=== PATIENT | female | born 1945 | race Caucasian/White ===

== ENCOUNTER 2018-02-13 07:28 | Day surgery (SDC) | payer OTHER ==
[2018-02-13] MEDS ORDERED: Ringers Lactate 1,000 ML IV ONE (08:10)
[2018-02-13] MEDS ORDERED: PROPOFOL 200 MG/20 ML VIAL IV ONE (09:35)
[2018-02-13] MEDS ORDERED: LIDOCAINE 1% MPF 5 ML VIAL ONE (09:35)
--- NOTE | 2018-02-13 11:40 | ENDO RPT ---
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 ESTIMATED BLOOD LOSS: None CONSENT: The patient understands the risks and benefits of the procedure and understands that these risks include, but are not limited to: sedation, allergic reaction, infection, perforation and/or bleeding. Alternative means of evaluation and treatment include, among others: physical exam, x-rays, and/or surgical intervention. The patient elects to proceed with this endoscopic procedure. DESCRIPTION OF PROCEDURE: During intra-op preparation period all mechanical medical equipment was checked for proper function. Hand hygiene and appropriate measures for infection prevention was taken. Procedure, possible complications, alternatives including, but not limited to possibility of bleeding, perforation, tear, infection, sepsis, need for surgery, need for blood transfusion, were explained to the patient. After the risks, benefits and alternatives of the procedure were thoroughly explained, Informed consent was verified, confirmed and timeout was successfully executed by the treatment team. The patient was placed in the left lateral position. A digital rectal exam was performed and revealed internal hemorrhoids. After appropriate level of anesthesia, the scope was passed. The EC-[id number] ([id number]) endoscope was introduced through the anus and advanced to the cecum, which was identified by both the appendix and ileocecal valve. Passage of the scope was slower through the sigmoid colon due to significant tortuosoty, and diverticulosis. The quality of the prep was good. The instrument was then slowly withdrawn as the colon was fully examined. Scope withdrawal time was 12 minutes. COLON FINDINGS: There was severe diverticulosis noted in the left colon (sigmoid most affected) and few within the right colon. There was associated tortuosity and muscular hypertrophy in the sigmoid region. No bleeding was noted from the diverticulosis. Rectal Prolapse was noted in preop, and patient examined while bearing down and a small rectal prolapse was noted. Tortuous Redundand Sigmoid Colon was noted as above. A small patch of abnormal mucosa was found at the cecum. The mucosa was congested, erythematous and had petechiae and a biopsy was performed using cold forceps. Retroflexed views revealed small hemorrhoids. The scope was then completely withdrawn from the patient and the procedure terminated. ADVERSE EVENTS: There were no complications. IMPRESSIONS: 1. There was severe diverticulosis noted in the left colon and right colon 2. Rectal Prolapse 3. Tortuous Redundand Sigmoid Colon 4. Small abnormal mucosa was found at the cecum; The mucosa was congested, erythematous and had petechiae; biopsy was performed using cold forceps RECOMMENDATIONS: 1. avoid NSAIDS for 2 weeks 2. await biopsy results 3. follow-up: office 2 week(s) 4. Monitor for any evidence of rectal bleeding. 5. increase dietary water 6. low fiber / diverticular diet 7. hemorrhoidal hygiene 8. surgery - Will refer to Colorectal surgery to evaluate rectal prolapse RECALL: Return in 5 year(s) for Colonoscopy, pending biopsy results. Pending Biopsy Results Jared Sanchez DR eSigned: Jared Sanchez DR 02/13/2018 10:29 AM cc: CPT CODES: ICD9 CODES: PATIENT NAME: Aviva Bonilla MR#: [id number]
== END 2018-02-13 11:15 | disposition home or self-care (01) ==
LOC: OR 07:28
PROVIDERS: ATTEND Surgery
PROC: 0DBP8ZX Excision of Rectum, Via Natural or Artificial Opening Endoscopic, Diagnostic (ICD-10-PCS; 2018-02-13)
PROC: 0DBG8ZX Excision of Left Large Intestine, Via Natural or Artificial Opening Endoscopic, Diagnostic (ICD-10-PCS; 2018-02-13)
PROC: 0DBH8ZX Excision of Cecum, Via Natural or Artificial Opening Endoscopic, Diagnostic (ICD-10-PCS; principal; 2018-02-13 10:00)
DX: Z12.11 Encounter for screening for malignant neoplasm of colon (principal); K62.1 Rectal polyp; K52.9 Noninfective gastroenteritis and colitis, unspecified; K57.30 Diverticulosis of large intestine without perforation or abscess without bleeding; K62.3 Rectal prolapse; Q43.8 Other specified congenital malformations of intestine; K64.8 Other hemorrhoids
CPT/HCPCS: 45380; 88305; J2704

== ENCOUNTER 2018-05-21 07:24 | Day surgery (SDC) | payer OTHER ==
[2018-05-20 15:25] LABS: Absolute Lymphocytes (CBC) 2.5 K/uL (0.7-4.9); Absolute Monocytes 0.7 K/uL (0.1-1.3); Absolute Neutrophil 4.2 K/uL (1.8-8.0); Basophils % 0.8 % (0-1.3); Eosinophils % 4.8 % (0-4.4); Hematocrit 39.4 % (36.0-45.0); Lymphocytes % 32.2 % (15.3-44.8); MPV 8.3 fL (7.6-11.3); Monocytes % 8.3 % (3.3-12.3); RBC Red Blood Cell Count 4.09 M/uL (3.86-4.86)
--- NOTE | 2018-05-20 15:25 | RAD REPORT ---
EXAM DESCRIPTION: RAD - Chest Pa And Lat (2 Views) - 05/20/2018 3:15 pm CLINICAL HISTORY: preop Chest pain. COMPARISON: CHEST PA AND LAT 2 VIEW dated 07/30/2012; CHEST PA AND LAT 2 VIEW dated 11/29/2011; CHEST P A AND LAT 2 VIEW dated 06/12/2011 FINDINGS: The lungs are clear. The heart is normal in size. No displaced fractures. IMPRESSION: No acute or concerning finding suspected.
[2018-05-20 15:29] LABS: Protime INR 0.93
[2018-05-20 15:38] LABS: Potassium 4.7 mmol/L (3.5-5.1)
--- NOTE | 2018-05-20 17:27 | EKG ---
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
[2018-05-21] MEDS ORDERED: NA CHLORIDE 0.9% 500 ML ONE (07:43)
[2018-05-21] MEDS ORDERED: HEPARIN 5000 UNIT/ML 1 ML VIAL ONE (08:26)
[2018-05-21] MEDS ORDERED: MIDAZOLAM HCL 2 MG/2 ML INJ ONE (08:27)
[2018-05-21] MEDS ORDERED: FENTANYL CITR 100 MCG/2 ML ONE (08:27)
[2018-05-21] MEDS ORDERED: LIDOCAINE 1% MPF 30 ML VIAL ONE (08:34)
[2018-05-21] MEDS ORDERED: HEPA 1000U/500MLS 2,000 UNIT/1,000 ML BAG IV ONE (09:40)
--- NOTE | 2018-05-21 19:05 | OP ---
Surgeon: Shay Schroeder MD Procedures: Carotid angiogram and coronary angiogram. Findings: The right common carotid artery just before the bulb, and the carotid bulb and the right i nternal carotid artery have a complicated 80% stenosis. The left carotid has less than 20% stenosis, and because she is a candidate for carotid endarterectomy, we took a picture of her coronary arterie s. Her RCA is left dominant with mild coronary plaque. No stenosis. Procedure In Detail: The patient was brought to the cardiac lab assistant in a fasting state, sedated wit h Versed and fentanyl. Prepared and draped in usual sterile fashion. Right femoral approach was use d. The artery was entered using an 18-gauge needle, cannulated with a short J-wire 4-Malay sheath. The sheath was flushed. Heparin 2500 units were given. We used a JR4 to angiogram the carotids and the right coronary artery. A JL4 to angiogram the left coronary artery. At the end of the procedur e, catheters were withdrawn. We took a sheath shot and decided to close the arteriotomy using an Ang io-Seal device. JOE/KOBY Voice ID: [id number] Report ID: [id number]
== END 2018-05-21 15:02 | disposition home or self-care (01) ==
LOC: OR 07:24 → CCL 07:24
PROVIDERS: ATTEND Internal Medicine
DX: I65.23 Occlusion and stenosis of bilateral carotid arteries (principal); I25.10 Atherosclerotic heart disease of native coronary artery without angina pectoris; E78.2 Mixed hyperlipidemia; F17.210 Nicotine dependence, cigarettes, uncomplicated
CPT/HCPCS: 93005; 85025; 80048; 36415; 85610; 85730; 71046; 93454; 36222; C1893; J1644; J2250; J3010

== ENCOUNTER 2019-03-12 15:16 | Emergency (ER) | payer OTHER ==
--- NOTE | 2019-03-12 16:06 | RAD REPORT ---
EXAM DESCRIPTION: CT - Head Brain Wo Cont - 03/12/2019 3:46 pm CLINICAL HISTORY: Alteration of awareness/confusion COMPARISON: None TECHNIQUE: Computed axial tomography of the head was obtained. IV contrast was not requested. All CT scans are performed using dose optimization technique as appropriate and may include automated exposure control or mA/KV adjustment according to patient size. FINDINGS: An intracranial bleed is not seen . The ventricles are normal in caliber. No extra-axial fluid collection is noted. Mild to moderate low-density areas within periventricular, deep and subcortical white matter likely r epresent ischemic changes secondary to small vessel disease. Fluid within the sinuses/ mastoids is not seen. IMPRESSION: No acute intracranial abnormality is seen. If patient's symptoms persist MRI of the bra in would be recommended.
--- NOTE | 2019-03-12 16:34 | RAD REPORT ---
EXAM DESCRIPTION: MRI - Brain Wo Cont - 03/12/2019 4:18 pm CLINICAL HISTORY: Syncope COMPARISON: March 12, [address] TECHNIQUE: Axial, sagittal, and coronal magnetic images of the brain were obtained. Contrast was not requested FINDINGS: Mild signal within periventricular, deep and subcortical white matter likely ischemic norris ges secondary to small vessel disease. Small area of increased signal within the right basal ganglia may indicate an old lacunar infarction. . Diffusion-weighted/ADC mapping does not reveal evidence of acute infarction. The ventricles are normal caliber. An extra-axial fluid collection is not present The sinuses and mastoids are clear. IMPRESSION: No acute intracranial abnormality
--- NOTE | 2019-03-12 17:15 | RAD REPORT ---
EXAM DESCRIPTION: MRI - Lumbar Spine Wo Con - 03/12/2019 5:01 pm CLINICAL HISTORY: Radiculopathy/back pain COMPARISON: 2017 TECHNIQUE: Sagittal T1, T2 and STIR weighted sequences were obtained. Axial T1 and T2 sequences were obtained through the lumbar disc levels. FINDINGS: Mild spondylosis L1-2 Facet hypertrophy with small left lateral disc herniation narrow as the left neural foramina and left lateral recess at L2-3 Disc bulge, ligamentum flavum and facet hypertrophy L3-4. Mild narrowing of the thecal sac which mary ures 10 millimeters. Mild narrowing of the neural foramina bilaterally. Small right lateral disc herniation L4-5. Ligamentum flavum and facet hypertrophy. Narrowing of the r ight neural foramina. Mild narrowing of the thecal sac which measures 8.5 millimeters Mild spondylosis L5-S1 Degenerative signal involves several vertebral endplates. IMPRESSION: Small left lateral disc herniation L2-3 in combination with spondylosis result in left f oraminal stenosis Small right lateral disc herniation L4-5 in combination with spondylosis result in right foraminal st enosis
[2019-03-12 17:44] LABS: Barbiturates NEGATIVE (NEGATIVE); Benzodiazepines POSITIVE (NEGATIVE); Cocaine NEGATIVE (NEGATIVE); METHAMPHETAM NEGATIVE (NEGATIVE); Methadone NEGATIVE (NEGATIVE); Opiates NEGATIVE (NEGATIVE); Phencyclidine NEGATIVE (NEGATIVE); THC Cannibis NEGATIVE (NEGATIVE)
[2019-03-12 17:47] LABS: Urine Blood 1+ (NEG); Urine Glucose NEGATIVE (NEG); Urine Protein NEGATIVE (NEG); Urine Specific Gravity 1.015 (1.005-1.030); Urine pH 7.5 (5.0-7.0)
--- NOTE | 2019-03-12 18:13 | RAD REPORT ---
EXAM DESCRIPTION: Naomi Single View03/12/2019 5:53 pm CLINICAL HISTORY: cough COMPARISON: March 10, 2019 FINDINGS: The lungs appear clear of acute infiltrate. The heart is normal size IMPRESSION: No acute abnormalities displayed
[2019-03-12 19:04] LABS: Protime INR 0.89
[2019-03-12 19:07] LABS: Absolute Lymphocytes (CBC) 2.6 K/uL (0.7-4.9); Basophils % 0.9 % (0-1.3); Hematocrit 38.2 % (36.0-45.0); Lymphocytes % 30.6 % (15.3-44.8); MPV 8.5 fL (7.6-11.3)
[2019-03-12] MEDS ORDERED: CEFTRIAXONE/SWI 1gm 1 GM/10 ML SYR ONE (19:33)
[2019-03-12] MEDS ORDERED: NA CHLORIDE 0.9% 1,000 ML ONE (19:33)
[2019-03-12 19:44] LABS: ALT/SGPT 23 U/L (12-78); AST/SGOT 19 U/L (15-37); Alkaline Phosphatase 55 U/L (45-117); BUN Blood Urea Nitrogen 14 mg/dL (7-18); Bicarbonate 30 mmol/L (21-32); Bilirubin Direct 0.2 mg/dL (0-0.2); Bilirubin Total 0.7 mg/dL (0.2-1.0); Glucose Level 98 mg/dL (74-106); Magnesium 2.5 mg/dL (1.8-2.4); NT PRO-BNP 100 pg/mL (<450); Potassium 4.3 mmol/L (3.5-5.1); Sodium Level 142 mmol/L (136-145); Troponin (Emerg Dept Use Only) < 0.02 ng/mL (0.0-0.045)
--- NOTE | 2019-03-12 20:15 | EDPHYS ---
Physician Documentation [facility] Name: Aviva Bonilla Age: 73 yrs Sex: Female : 1945 Arrival Date: 03/12/2019 Time: 15:18 Bed 5 Private MD: ED Physician Cal Magdaleno HPI: 03/12 17:19 This 73 yrs old Female presents to ER via Stretcher with complaints of vida Accidental Overdose. 17:19 Context: Method: the patient has a confirmed or suspected ingestion, valium 40 mg po vida x1, prior to mri. Associated signs and symptoms: The patient has no apparent associated signs or symptoms. Severity of symptoms: At their worst the symptoms were moderate in the emergency department the symptoms are unchanged. The patient has not experienced similar symptoms in the past. Historical: - Allergies: 15:19 No Known Allergies; ss - Immunization history:: Adult Immunizations unknown. - Social history:: Smoking status: Patient/guardian denies using tobacco. - Ebola Screening: : Patient denies exposure to infectious person Patient denies travel to an Ebola-affected area in the 21 days before illness onset. - Family history:: not pertinent. ROS: 17:19 Constitutional: Negative for fever, chills, and weight loss, Eyes: Negative for injury, vida pain, redness, and discharge, ENT: Negative for injury, pain, and discharge, Neck: Negative for injury, pain, and swelling, Cardiovascular: Negative for chest pain, palpitations, and edema, Respiratory: Negative for shortness of breath, cough, wheezing, and pleuritic chest pain, Abdomen/GI: Negative for abdominal pain, nausea, vomiting, diarrhea, and constipation, Back: Negative for injury and pain, : Negative for injury, bleeding, discharge, and swelling, MS/Extremity: Negative for injury and deformity, Skin: Negative for injury, rash, and discoloration, Psych: Negative for depression, anxiety, suicide ideation, homicidal ideation, and hallucinations, Allergy/Immunology: Negative for hives, rash, and allergies, Endocrine: Negative for neck swelling, polydipsia, polyuria, polyphagia, and marked weight changes, Hematologic/Lymphatic: Negative for swollen nodes, abnormal bleeding, and unusual bruising. 17:19 Neuro: Positive for altered mental status, dizziness, speech changes, weakness. Exam: 17:19 Constitutional: This is a well developed, well nourished patient who is awake, alert, vida and in no acute distress. Head/Face: Normocephalic, atraumatic. Eyes: Pupils equal round and reactive to light, extra-ocular motions intact. Lids and lashes normal. Conjunctiva and sclera are non-icteric and not injected. Cornea within normal limits. Periorbital areas with no swelling, redness, or edema. ENT: Nares patent. No nasal discharge, no septal abnormalities noted. Tympanic membranes are normal and external auditory canals are clear. Oropharynx with no redness, swelling, or masses, exudates, or evidence of obstruction, uvula midline. Mucous membranes moist. Neck: Trachea midline, no thyromegaly or masses palpated, and no cervical lymphadenopathy. Supple, full range of motion without nuchal rigidity, or vertebral point tenderness. No Meningismus. Chest/axilla: Normal chest wall appearance and motion. Nontender with no deformity. No lesions are appreciated. Cardiovascular: Regular rate and rhythm with a normal S1 and S2. No gallops, murmurs, or rubs. Normal PMI, no JVD. No pulse deficits. Respiratory: Lungs have equal breath sounds bilaterally, clear to auscultation and percussion. No rales, rhonchi or wheezes noted. No increased work of breathing, no retractions or nasal flaring. Abdomen/GI: Soft, non-tender, with normal bowel sounds. No distension or tympany. No guarding or rebound. No evidence of tenderness throughout. Back: No spinal tenderness. No costovertebral tenderness. Full range of motion. Skin: Warm, dry with normal turgor. Normal color with no rashes, no lesions, and no evidence of cellulitis. MS/ Extremity: Pulses equal, no cyanosis. Neurovascular intact. Full, normal range of motion. Neuro: Awake and alert, GCS 15, oriented to person, place, time, and situation. Cranial nerves II-XII grossly intact. Motor strength 5/5 in all extremities. Sensory grossly intact. Cerebellar exam normal. Normal gait. Psych: Awake, alert, with orientation to person, place and time. Behavior, mood, and affect are within normal limits. Vital Signs: 15:18 BP 91 / 53; Pulse 74; Resp 14; Temp 97.9(TE); Pulse Ox 100% on R/A; Pain 0/10; ss 16:15 ph 17:20 BP 107 / 62; Pulse 76; Resp 16; Pulse Ox 99% on R/A; Pain 0/10; ph 19:30 BP 125 / 72; Pulse 62; Resp 12; Temp 97.6; Pulse Ox 100% on R/A; Pain 0/10; vc 20:30 BP 108 / 74; Pulse 66; Resp 15; Pulse Ox 100% on R/A; Pain 0/10; vc 16:15 Pt in radiology ph MDM: 15:30 Patient medically screened. [facility] 18:53 Data reviewed: vital signs, nurses notes, lab test result(s), EKG, radiologic studies, [facility] CT scan, MRI, plain films. 03/12 15:31 Order name: Basic Metabolic Panel; Complete Time: 20:07 [facility] 03/12 20:07 Interpretation: Normal except: CL 108; GFR 65. 03/12 15:31 Order name: CBC with Diff; Complete Time: 19:25 [facility] 03/12 15:31 Order name: LFT's; Complete Time: 20:07 [facility] 03/12 15:31 Order name: Magnesium; Complete Time: 20:07 [facility] 03/12 20:08 Interpretation: MG 2.5; Reviewed. 03/12 15:31 Order name: NT PRO-BNP; Complete Time: 20:07 [facility] 03/12 15:31 Order name: PT-INR; Complete Time: 19:15 [facility] 03/12 15:31 Order name: Troponin (emerg Dept Use Only); Complete Time: 20:07 [facility] 03/12 20:08 Interpretation: Reviewed. 03/12 15:31 Order name: Acetaminophen; Complete Time: 20:07 [facility] 03/12 15:31 Order name: ETOH Level; Complete Time: 19:25 [facility] 03/12 15:31 Order name: Ptt, Activated; Complete Time: 19:15 [facility] 03/12 15:31 Order name: Salicylate; Complete Time: 20:07 [facility] 03/12 15:31 Order name: Urine Drug Screen; Complete Time: 18:05 [facility] 03/12 20:08 Interpretation: Normal except: BZO POSITIVE. 03/12 17:28 Order name: Urine Dipstick--Ancillary (enter results); Complete Time: 18:05 03/12 20:08 Interpretation: Normal except: UBLD 1+; UPH 7.5; UESTR 3+. cp 03/12 15:31 Order name: XRAY Chest (1 view); Complete Time: 19:15 vida 03/12 15:31 Order name: EKG; Complete Time: 15:34 vida 03/12 15:31 Order name: Cardiac monitoring; Complete Time: 17:48 vida 03/12 15:31 Order name: EKG - Nurse/Tech; Complete Time: 19:45 vida 03/12 15:31 Order name: IV Saline Lock; Complete Time: 19:45 vida 03/12 15:31 Order name: Labs collected and sent; Complete Time: 19:33 vida 03/12 15:31 Order name: O2 Per Protocol; Complete Time: 17:48 vida 03/12 15:31 Order name: CT Head Brain wo Cont; Complete Time: 16:25 vida 03/12 15:44 Order name: Brain Wo Cont MRI; Complete Time: 16:44 bd 03/12 20:09 Interpretation: Report reviewed. 03/12 16:10 Order name: Lumbar Spine Wo Con; Complete Time: 18:05 EDMS 03/12 18:00 Order name: Diet Regular; Complete Time: 18:00 ph 03/12 15:31 Order name: O2 Sat Monitoring; Complete Time: 17:48 vida 03/12 15:31 Order name: Urine Dipstick-Ancillary (obtain specimen); Complete Time: 17:54 vida Administered Medications: 18:27 CANCELLED (Duplicate Order): Xopenex 1.25 mg Inhalation once vida 18:27 CANCELLED (Duplicate Order): AtroVENT Aerosol 0.5 mg Inhalation once vida 18:27 CANCELLED (Duplicate Order): D50W 25 ml IVP once; (0.5 amp) vida 19:44 Drug: NS 0.9% 1000 ml Route: IV; Rate: 1 bolus; Site: left antecubital; vc 19:44 Drug: Rocephin - (cefTRIAXone) 1 grams Route: IVPB; Infused Over: 30 mins; Site: left vc antecubital; Disposition: 03/12/19 20:13 Discharged to Home. Impression: Altered mental status, unspecified - over medicated, Urinary tract infection, site not specified. - Condition is Stable. - Discharge Instructions: Dysuria, Benzodiazepine Overdose, Urinary Tract Infection, Adult, Urinary Tract Infection, Adult, [id number]. - Prescriptions for Cipro 250 mg Oral Tablet - take 1 tablet by ORAL route every 12 hours; 14 tablet. - Medication Reconciliation Form, Thank You Letter, Antibiotic Education, Prescription Opioid Use form. - Follow up: Private Physician; When: 2 - 3 days; Reason: Recheck today's complaints, Continuance of care, Re-evaluation by your physician. - Problem is new. - Symptoms have improved. Signatures: Dispatcher [employer] EDNV Cal Magdaleno MD MD cha Smirch, Shelby RN RN ss Cal Phelps PA PA cp Neris Bush, RN RN vc Corrections: (The following items were deleted from the chart) 18:27 18:27 Xopenex 1.25 mg Inhalation once ordered. [facility] 18:27 18:27 AtroVENT Aerosol 0.5 mg Inhalation once ordered. [facility] 18:27 18:27 D50W 25 ml IVP once; (0.5 amp) ordered. [facility] 20:52 20:13 03/12/2019 20:13 Discharged to Home. Impression: Altered mental status, vc unspecified - over medicated; Urinary tract infection, site not specified. Condition is Stable. Discharge Instructions: Dysuria, Urinary Tract Infection, Adult, Urinary Tract Infection, Adult, [id number], Benzodiazepine Overdose. Prescriptions for Cipro 250 mg Oral Tablet - take 1 tablet by ORAL route every 12 hours; 14 tablet. and Forms are Medication Reconciliation Form, Thank You Letter, Antibiotic Education, Prescription Opioid Use. Follow up: Private Physician; When: 2 - 3 days; Reason: Recheck today's complaints, Continuance of care, Re-evaluation by your physician. Problem is new. Symptoms have improved. cp
--- NOTE | 2019-03-12 20:15 | ER ---
Nurse's Notes [facility] Name: Aviva Bonilla Age: 73 yrs Sex: Female : 1945 Arrival Date: 03/12/2019 Time: 15:18 Bed 5 Private MD: Diagnosis: Altered mental status, unspecified-over medicated;Urinary tract infection, site not specified Presentation: 03/12 15:19 Presenting complaint: Pt was given unknown medication prescribed by Dr. Cifuentes prior to ss having an MRI of her hip today. Pt is unsure which medication it was, but is heavily sedated. Family member unable to get patient out of car due to sedation. Pt arouses to loud verbal stimuli. Pt is able to maintain her own airway. Transition of care: patient was not received from another setting of care. Onset of symptoms was March 12, 2019. Risk Assessment: Do you want to hurt yourself or someone else? Patient reports no desire to harm self or others. Initial Sepsis Screen: Does the patient meet any 2 criteria? No. Patient's initial sepsis screen is negative. Does the patient have a suspected source of infection? No. Patient's initial sepsis screen is negative. Care prior to arrival: SEE TRIAGE NOTE. 15:19 Acuity: NOHEMI 3 ss 15:19 Method Of Arrival: Stretcher ss Historical: - Allergies: 15:19 No Known Allergies; ss - Immunization history:: Adult Immunizations unknown. - Social history:: Smoking status: Patient/guardian denies using tobacco. - Ebola Screening: : Patient denies exposure to infectious person Patient denies travel to an Ebola-affected area in the 21 days before illness onset. - Family history:: not pertinent. Screenin:47 Abuse screen: Denies threats or abuse. Denies injuries from another. Nutritional ph screening: No deficits noted. Tuberculosis screening: No symptoms or risk factors identified. Fall Risk No fall in past 12 months (0 pts). No secondary diagnosis (0 pts). IV access (20 points). Ambulatory Aid- None/Bed Rest/Nurse Assist (0 pts). Gait- Weak (10 pts.). Mental Status- Overestimates/Forgets Limitations (15 pts.). Total Veras Fall Scale indicates High Risk Score (45 or more points). Fall prevention measures have been instituted. Side Rails Up X 2 Placed Close to Nursing Station Frequent Obs/Assessments Occuring Family Present and informed to notify staff if the need to leave the bedside As available patient and family educated on Fall Prevention Program and Strategies. Assessment: 15:30 General: Appears in no apparent distress. comfortable, slender, well groomed, Behavior ph is drowsy, listless, quiet. Pain: Denies pain. Neuro: Level of Consciousness is confused, lethargic, listless, Oriented to person. Cardiovascular: Capillary refill < 3 seconds in bilateral fingers Patient's skin is warm and dry. Respiratory: Airway is patent Respiratory effort is even, unlabored, Respiratory pattern is regular, symmetrical. Derm: Skin is intact, Skin is pale. Musculoskeletal: Circulation, motion, and sensation intact. 16:14 Reassessment: Pt in radiology. 16:50 Reassessment: Pt remains in radiology. 17:15 Reassessment: Patient appears in no apparent distress at this time. Pt returned from radiology, more awake and alert, ambulated to restroom w/ assistance, pt states, " I feel fine, just a little drowsy." Pt reports that he located medication bottle in pt's purse, prescription for 10 mg diazepam x 4, pt states, " I was really scared so I took all four.". 18:39 Reassessment: Patient appears in no apparent distress at this time. Patient and/or family updated on plan of care and expected duration. Pain level reassessed. Patient is alert, oriented x 3, equal unlabored respirations, skin warm/dry/pink. Multiple attempts to obtain blood work unsuccessful, phlebotomy at bedside. 19:15 Reassessment: Patient and/or family updated on plan of care and expected duration. Pain vc level reassessed. Patient laying with eyes closed. Patient denies pain at this time. Vital Signs: 15:18 BP 91 / 53; Pulse 74; Resp 14; Temp 97.9(TE); Pulse Ox 100% on R/A; Pain 0/10; ss 16:15 ph 17:20 BP 107 / 62; Pulse 76; Resp 16; Pulse Ox 99% on R/A; Pain 0/10; ph 19:30 BP 125 / 72; Pulse 62; Resp 12; Temp 97.6; Pulse Ox 100% on R/A; Pain 0/10; vc 20:30 BP 108 / 74; Pulse 66; Resp 15; Pulse Ox 100% on R/A; Pain 0/10; vc 16:15 Pt in radiology ph ED Course: 15:18 Patient arrived in ED. ss 15:18 Arm band placed on right wrist. ss 15:24 Triage completed. ss 15:30 Cal Magdaleno MD is Attending Physician. vida 15:44 Olesya Aguilera, RN is Primary Nurse. ph 15:47 CT Head Brain wo Cont In Process Unspecified. EDMS 16:04 Brain Wo Cont MRI In Process Unspecified. EDMS 16:08 Radiology exam delayed due to IN MRI. bh 16:15 No provider procedures requiring assistance completed. ph 16:36 Lumbar Spine Wo Con In Process Unspecified. EDMS 17:35 Missed attempt(s): 22 gauge in right antecubital area. Bleeding controlled, band aid ph applied, catheter tip intact. Missed attempt(s): 22 gauge in right forearm. Bleeding controlled, band aid applied, catheter tip intact. 17:47 Patient has correct armband on for positive identification. Bed in low position. Call ph light in reach. Side rails up X2. Pulse ox on. NIBP on. Door closed. Noise minimized. Warm blanket given. 17:53 XRAY Chest (1 view) In Process Unspecified. EDMS 19:46 EKG done, by ED staff, reviewed by Bhupendra King MD. ds4 20:45 IV discontinued, intact, bleeding controlled, No redness/swelling at site. Pressure vc dressing applied. Administered Medications: 18:27 CANCELLED (Duplicate Order): Xopenex 1.25 mg Inhalation once vida 18:27 CANCELLED (Duplicate Order): AtroVENT Aerosol 0.5 mg Inhalation once vida 18:27 CANCELLED (Duplicate Order): D50W 25 ml IVP once; (0.5 amp) vida 19:44 Drug: NS 0.9% 1000 ml Route: IV; Rate: 1 bolus; Site: left antecubital; vc 19:44 Drug: Rocephin - (cefTRIAXone) 1 grams Route: IVPB; Infused Over: 30 mins; Site: left vc antecubital; Outcome: 20:13 Discharge ordered by . cp 20:51 Discharged to home via wheelchair, with family, with friend. vc 20:51 Condition: good 20:51 Discharge instructions given to patient, family, friend, Instructed on discharge instructions, follow up and referral plans. medication usage, Prescriptions given X 1. 20:52 Patient left the ED. vc Signatures: Dispatcher [employer] EDCal Miles MD MD cha Smirch, Shelby, RN RN Carroll Pate ds4 Olesya Aguilera RN RN ph Page, Corey, PA PA cp Calcote, Vanessa, RN RN vc Hallum, Brittan bh
[2019-03-12 23:39] VITALS: BP 125/72; TEMP 97.6; O2SAT 100
--- NOTE | 2019-03-13 10:59 | EKG ---
Test Date: 2019-03-12 Test Time: 19:37:43 Process Developer: CONY MEASUREMENT RESULTS: Intervals: Rate: 62 MA: 140 QRSD: 80 QT: 416 QTc: 422 [place]: P: 49 MA: 140 QRS: 16 T: 46 INTERPRETIVE STATEMENTS: Normal sinus rhythm Normal ECG Compared to ECG 05/20/2018 15:00:36 Sinus bradycardia no longer present Electronically Signed On 03-13-19 10:58:18 [employer] by Rocael Branch
== END 2019-03-12 20:52 | disposition home or self-care (01) ==
LOC: ER 15:16
DX: T42.4X1A Poisoning by benzodiazepines, accidental (unintentional), initial encounter (principal); N39.0 Urinary tract infection, site not specified
CPT/HCPCS: 93005; 85025; 80048; 36415; 80320; 83735; 80329 ×2; 85610; 80076; 80307 ×8; 85730; 81003; 84484; 83880; 70450; 71045; 70551; 72148; 96374; 99284; J0696; J7030

== ENCOUNTER 2021-06-19 22:19 | Emergency (ER) | payer OTHER ==
--- OUTSIDE RECORDS SUMMARY | 2021-06-19 22:22 | XMS REPORT | Continuity of Care Document ---
:1945 Author Organization [facility] t Address [address] [place] [address] Care Team Providers Name Role Phone SHIRA Anabella Primary Care Physician Unavailable Tiesha MIXON Attending Clinician Unavailable Only, Test Attending Clinician Unavailable Tiesha Mixon MD Attending Clinician Pob, Lab Main Attending Clinician Unavailable Doctor Unassigned, Name Attending Clinician Unavailable NAREN Attending Clinician Unavailable Rahat SPAULDING Attending Clinician RAHAT Attending Clinician Unavailable Tiesha MIXON Admitting Clinician Unavailable Payers Payer Name Policy Type Policy Number Effective Date Expiration Date [employer] [id number] 2020 00:00:00 SPRING Problems Condition Condition Condition Status Onset Resolution Last Treating Co mments Source Name Details Category Date Date Treatment Clinician Date No known No known Disease Unive rs active active ity of problems problems [facility] Allergies, Adverse Reactions, Alerts Allergy Allergy Status Severity Reaction(s) Onset Inactive Treating Comm ents Source Name Type Date Date Clinician NO KNOWN Drug Active Univers ALLERGIE Class ity of S [facility] Social History Social Habit Start Date Stop Date Quantity Comments Source Exposure to Not sure [facility] SARS-CoV-2 (event) Medica l Branch Tobacco use and 2020-12-23 2020-12-23 Never used [facility] exposure 00:00:00 00:00:00 [facility] Sex [birth year] [facility] 00:00:00 00:00:00 [facility] Smoking Status Start Date Stop Date Source Unknown if ever smoked [facility] Never smoker [facility] Medications Ordered Filled Start Stop Current Ordering Indication Dosage Frequency Signature Comments Components Source Medication Medication Date Date Medication? Clinician (SIG) Name Name multivitami 2020-02 Yes 1{tbl} Take 1 Un jamshid n tablet 0-28 tablet by ity of 10:46: mouth [place] 35 every Medical morning. Branch vitamin B 2020-02 Yes 1{tbl} Take 1 Univ ers complex (B 0-28 tablet by ity of COMPLEX 1 10:46: mouth. [place] ORAL) [address] [place] [address] vitamin C 2020-02 Yes 1000mg Take 1,000 Univers with ronald 0-28 mg by ity of hips 1,000 10:46: mouth. [place] mg tablet 34 [facility] Branch aspirin 81 2020-02 Yes 81mg Take 81 mg U nivers mg EC 0-28 by mouth. ity of tablet 10:46: [address] CHOLECALCIF 2020- No 25mg Take 25 mg Univers ZAN, 11-15 09-20 by mouth. ity of VITAMIN D3, 14:56: 00:00 [place] ORAL 35 :00 [facility] CHOLECALCIF 2020- No 25mg Take 25 mg Univers ZAN, 11-15 09-20 by mouth. ity of VITAMIN D3, 14:56: 00:00 [place] ORAL 35 :00 [facility] CHOLECALCIF 2020- No 25mg Take 25 mg Univers ZAN, 11-15 0920 by mouth. ity of VITAMIN D3, 14:56: 00:00 [place] ORAL 35 :00 [facility] vitamin C Yes 1000mg Take 1,000 Univers with ronald 9-20 mg by ity of hips 1,000 14:55: mouth. [place] mg tablet 34 [facility] Branch aspirin 81 Yes 81mg Take 81 mg U nivers mg EC 9-20 by mouth. ity of tablet 14:55: [address] multivitami Yes 1{tbl} Take 1 Un jamshid n tablet 9-20 tablet by ity of 14:55: mouth [place] [id number] every Medical morning. Branch vitamin C Yes 1000mg Take 1,000 Univers with ronald 9-20 mg by ity of hips 1,000 14:55: mouth. [place] mg tablet 34 Medical Branch aspirin 81 Yes 81mg Take 81 mg U nivers mg EC 9-20 by mouth. ity of tablet 14:55: [address] Branch multivitami Yes 1{tbl} Take 1 Un jamshid n tablet 9-20 tablet by ity of 14:55: mouth [place] 34 every Medical morning. Branch vitamin C Yes 1000mg Take 1,000 Univers with ronald 9-20 mg by ity of hips 1,000 14:55: mouth. [place] mg tablet 34 Medical Branch aspirin 81 Yes 81mg Take 81 mg U nivers mg EC 9-20 by mouth. ity of tablet 14:55: [address] Branch multivitami Yes 1{tbl} Take 1 Un jamshid n tablet 9-20 tablet by ity of 14:55: mouth [place] 34 every Medical morning. Branch vitamin C Yes 1000mg Take 1,000 Univers with ronald 9-20 mg by ity of hips 1,000 14:55: mouth. [place] mg tablet 34 Medical Branch aspirin 81 Yes 81mg Take 81 mg U nivers mg EC 9-20 by mouth. ity of tablet 14:55: [address] multivitami Yes 1{tbl} Take 1 Un jamshid n tablet 9-20 tablet by ity of 14:55: mouth [place] 34 every Medical morning. Branch vitamin C Yes 1000mg Take 1,000 Univers with ronald 9-20 mg by ity of hips 1,000 14:55: mouth. [place] mg tablet 34 Medical Branch aspirin 81 Yes 81mg Take 81 mg U nivers mg EC 9-20 by mouth. ity of tablet 14:55: [address] multivitami Yes 1{tbl} Take 1 Un jamshid n tablet 9-20 tablet by ity of 14:55: mouth [place] 34 every Medical morning. Branch vitamin B Yes 1{tbl} Take 1 Univ ers complex (B 9-20 tablet by ity of COMPLEX 1 14:55: mouth. [place] ORAL) [address] [place] [address] vitamin B Yes 1{tbl} Take 1 Univ ers complex (B 9-20 tablet by ity of COMPLEX 1 14:55: mouth. [place] ORAL) [address] [place] [address] vitamin B Yes 1{tbl} Take 1 Univ ers complex (B 9-20 tablet by ity of COMPLEX 1 14:55: mouth. [place] ORAL) 33 Medical Branch vitamin B 2020-0 Yes 1{tbl} Take 1 Univ ers complex (B 9-20 tablet by ity of COMPLEX 1 14:55: mouth. [place] ORAL) 33 Medical Branch vitamin B 1-0 Yes 1{tbl} Take 1 Univ ers complex (B 9-20 tablet by ity of COMPLEX 1 14:55: mouth. [place] ORAL) Medical Branch SERTraline 2020-0 Yes 25mg Take 25 mg U nivers 25 mg 8-28 by mouth ity of tablet 00:00: daily. [place] Medical Branch SERTraline 1-0 Yes 25mg Take 25 mg U nivers 25 mg 8-28 by mouth ity of tablet 00:00: daily. [place] Medical Branch SERTraline 1-0 Yes 25mg Take 25 mg U nivers 25 mg 8-28 by mouth ity of tablet 00:00: daily. [place] Medical Branch SERTraline 2020-0 Yes 25mg Take 25 mg U nivers 25 mg 8-28 by mouth ity of tablet 00:00: daily. [place] Medical Branch SERTraline 2020-0 Yes 25mg Take 25 mg U nivers 25 mg 8-28 by mouth ity of tablet 00:00: daily. [place] Medical Branch SERTraline 1-0 Yes 25mg Take 25 mg U nivers 25 mg 8-28 by mouth ity of tablet 00:00: daily. [place] Medical Branch memantine 1-0 Yes 10mg Take 10 mg Un jamshid 10 mg 8-24 by mouth 2 ity of tablet 00:00: (two) 00 times Medical daily. Branch memantine 1-0 Yes 10mg Take 10 mg Un jamshid 10 mg 8-24 by mouth 2 ity of tablet 00:00: (two) [place] 00 times Medical daily. Branch memantine 2021-0 Yes 10mg Take 10 mg Un jamshid 10 mg 8-24 by mouth 2 ity of tablet 00:00: (two) [place] 00 times Medical daily. Branch memantine 2021-0 Yes 10mg Take 10 mg Un jamshid 10 mg 8-24 by mouth 2 ity of tablet 00:00: (two) [place] times Medical daily. Branch memantine 1-0 Yes 10mg Take 10 mg Un jamshid 10 mg 8-24 by mouth 2 ity of tablet 00:00: (two) [place] times Medical daily. Branch memantine 2020-0 Yes 10mg Take 10 mg Un jamshid 10 mg 8-24 by mouth 2 ity of tablet 00:00: (two) [place] times Medical daily. Branch rosuvastati 2020-0 Yes 5mg Take 5 mg U nivers n 5 mg 8-23 by mouth ity of tablet 00:00: daily. Medical Branch rosuvastati 2020-0 Yes 5mg Take 5 mg U nivers n 5 mg 8-23 by mouth ity of tablet 00:00: daily. Medical Branch rosuvastati 2020-0 Yes 5mg Take 5 mg U nivers n 5 mg 8-23 by mouth ity of tablet 00:00: daily. Medical Branch rosuvastati 2020-0 Yes 5mg Take 5 mg U nivers n 5 mg 8-23 by mouth ity of tablet 00:00: daily. Medical Branch rosuvastati 2020-0 Yes 5mg Take 5 mg U nivers n 5 mg 8-23 by mouth ity of tablet 00:00: daily. Medical Branch rosuvastati 2020-0 Yes 5mg Take 5 mg U nivers n 5 mg 8-23 by mouth ity of tablet 00:00: daily. Medical Branch donepeziL 5 2020-0 Yes 5mg Take 5 mg U nivers mg tablet 7-19 by mouth. ity o f 00:00: Medical Branch donepeziL 5 2020-0 Yes 5mg Take 5 mg U nivers mg tablet 7-19 by mouth. ity o f 00:00: Medical Branch donepeziL 5 2020-0 Yes 5mg Take 5 mg U nivers mg tablet 7-19 by mouth. ity o f 00:00: Medical Branch donepeziL 5 2020-0 Yes 5mg Take 5 mg U nivers mg tablet 7-19 by mouth. ity o f 00:00: Medical Branch donepeziL 5 2020-0 Yes 5mg Take 5 mg U nivers mg tablet 7-19 by mouth. ity o f 00:00: Medical Branch donepeziL 5 2021-0 Yes 5mg Take 5 mg U nivers mg tablet 7-19 by mouth. ity o f 00:00: [address] Vital Signs Vital Name Observation Time Observation Value Comments Source Heart rate 2020-11-15 19:52:00 71 /min [facility] Body temperature 2020-11-15 19:52:00 36.11 Traci [facility] Respiratory rate 2020-11-15 19:52:00 18 /min [facility] Body height 2020-11-15 19:52:00 157.5 cm [facility] Body weight 2020-11-15 19:52:00 51.982 kg [facility] BMI 2020-11-15 19:52:00 20.96 kg/m2 [facility] Oxygen saturation in 2020-11-15 19:52:00 96 /min [facility] Arterial blood by [facility] Pulse oximetry Branch Systolic blood 2020-11-15 19:52:00 115 mm[Hg] Univer sity of pressure [facility] Diastolic blood 2020-11-15 19:52:00 77 mm[Hg] [facility] Procedure Date / Time Performed Performing Clinician [facility] ASSIGNMENT OF BENEFITS 2020-12-20 21:53:02 Doctor Unassigned, No [facility] Encounters Start End Encounter Admission Attending Care Care Encounter Source Date/Time Date/Time Type Type Clinicians Facility Department ID 2020-12-31 Outpatient R ORAL [facility] OPH [id number] Univers 12:50:13 JORDI [facility] 2020-12-27 Outpatient R ORAL [facility] OPH [id number] Univers 15:05:04 JORDI [facility] 2020-12-27 2020-12-27 Laboratory Only, Adc Test [facility] [id number]. 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 Vinaayk, Amol Lab Main [facility] 1.2.8 [id number] [id number] Univers 17:02:34 17:17:34 Visit Jordi Mixon [id number] 0 [id number] [id number] Hi dical nal [address] [facility] 2020-12-20 2020-12-20 Outpatient R [facility] [id number] Univers 17:00:00 17:00:00 [id number] [facility] 2020-12-20 2020-12-20 Outpatient R ORAL [facility] [id number] Univers 17:00:00 17:00:00 JORDI [facility] 2020-12-20 2020-12-20 Orders Doctor ALICIA [id number] Univers 00:00:00 00:00:00 Only Unassigned, JENNY [id number] ity of [place] [facility] [id number] Tra as [id number] [address] 2020-11-29 2020-11-29 Outpatient R NAREN [facility] [id number] Univers 13:00:00 13:00:00 JUAN [id number] [facility] 2020-11-15 2020-11-15 [facility] [id number] Univers 14:29:56 15:06:30 Visit Ankita Lopez [id number] i [id number] [id number] Hi dical nal [address] [facility] 2020-11-15 2020-11-15 [facility] [id number] Univers 15:00:00 15:00:00 ANKITA [facility] Results This patient has no known results.
[2021-06-19] MEDS ORDERED: MORPHINE 4 MG/ML SYR ONE ×2 (22:31→23:00)
[2021-06-19] MEDS ORDERED: ONDANSETRON 4 MG/2 ML VIAL ONE (22:31)
--- NOTE | 2021-06-19 23:11 | ER ---
Nurse's Notes [facility] Name: Aviva Bonilla Age: 75 yrs Sex: Female : 1945 Arrival Date: 06/19/2021 Time: 22:21 Bed 11 Private MD: Diagnosis: Fracture of unspecified part of neck of left femur, initial encounter for closed fracture;Fall on same level from slipping, tripping and stumbling without subsequent striking against object Presentation: 06/19 22:21 Chief complaint: EMS states: toned out for fall. Pt denies LOC or hitting head. Pt ld1 reporting left leg pain. Coronavirus screen: At this time, the client does not indicate any symptoms associated with coronavirus-19. Ebola Screen: No symptoms or risks identified at this time. Initial Sepsis Screen: Does the patient meet any 2 criteria? No. Patient's initial sepsis screen is negative. Does the patient have a suspected source of infection? No. Patient's initial sepsis screen is negative. Risk Assessment: Do you want to hurt yourself or someone else? Patient reports no desire to harm self or others. Onset of symptoms was June 19, 2021. 22:21 Method Of Arrival: EMS: [facility] ld1 22:21 Acuity: NOHEMI 3 ld1 Triage Assessment: 22:24 General: Appears in no apparent distress. uncomfortable, Behavior is anxious, fussy. ld1 Pain: Complains of pain in left leg. EENT: No signs and/or symptoms were reported regarding the EENT system. Neuro: Level of Consciousness is awake, alert, obeys commands, Oriented to person, place, time, situation. Cardiovascular: Capillary refill < 3 seconds Patient's skin is warm and dry. Respiratory: Airway is patent Respiratory effort is even, unlabored. GI: Abdomen is flat, non-distended. : No signs and/or symptoms were reported regarding the genitourinary system. Derm: No signs and/or symptoms reported regarding the dermatologic system. Musculoskeletal: Reports pain in left leg. Historical: - Allergies: 22:24 No Known Allergies; ld1 - Home Meds: 22:24 Zoloft 20 mg/mL Oral conc [Active]; aspirin 81 mg Oral chew 1 tab once daily [Active]; ld1 - PMHx: 22:24 Depressive disorder; ld1 - PSHx: 22:24 Hysterectomy; ld1 - Immunization history:: Adult Immunizations up to date, Client reports receiving the 2nd dose of the Covid vaccine. - Social history:: Smoking status: Patient denies any tobacco usage or history of. Patient/guardian denies using alcohol. Screenin:25 Abuse screen: Denies threats or abuse. Denies injuries from another. Nutritional ld1 screening: No deficits noted. Tuberculosis screening: No symptoms or risk factors identified. Fall Risk None identified. Assessment: 22:25 Reassessment: see triage assessment. ld1 23:48 Reassessment: Patient appears in no apparent distress at this time. Patient is alert, ld1 oriented x 3, equal unlabored respirations, skin warm/dry/pink. Patient states symptoms have improved. 06/20 00:15 Reassessment: Patient is alert, oriented x 3, equal unlabored respirations, skin vc1 warm/dry/pink. Patient states symptoms have improved. 01:00 Reassessment: Patient and/or family updated on plan of care and expected duration. Pain vc1 level reassessed. Patient is alert, oriented x 3, equal unlabored respirations, skin warm/dry/pink. Patient denies pain at this time. 01:49 Reassessment: Report given to receiving nurse VALERIE Martines. vc1 Vital Signs: 06/19 22:21 BP 150 / 102; Pulse 80; Resp 18; Temp 98.1(TE); Pulse Ox 98% on R/A; Weight 48.08 kg; ld1 Height 5 ft. 3 in. (160.02 cm); Pain 9/10; 23:48 BP 141 / 80; Pulse 70; Resp 17; Pulse Ox 95% on R/A; ld1 06/20 00:15 BP 131 / 63; Pulse 65; Resp 15; Pulse Ox 100% on R/A; vc1 01:00 BP 127 / 69; Pulse 62; Resp 15; Pulse Ox 99% on R/A; vc1 01:30 BP 133 / 66; Pulse 63; Resp 14; Pulse Ox 99% ; vc1 06/19 22:21 Body Mass Index 18.78 (48.08 kg, 160.02 cm) ld1 ED Course: 06/19 22:21 Patient arrived in ED. ld1 22:22 Cal Phelps PA is PHCP. cp 22:22 Levi Zelaya MD is Attending Physician. cp 22:24 Triage completed. ld1 22:24 Arm band placed on right wrist. ld1 22:25 Patient has correct armband on for positive identification. Placed in gown. Bed in low ld1 position. Call light in reach. Side rails up X2. Pulse ox on. NIBP on. Door closed. Noise minimized. Warm blanket given. 22:25 No provider procedures requiring assistance completed. Maintain EMS IV. Dressing ld1 intact. Good blood return noted. Site clean \\T\\ dry. Gauge \\T\\ site: 20G RFA. 22:34 Dayanara Cabral, VALERIE is Primary Nurse. ld1 22:48 XRAY Pelvis In Process Unspecified. EDMS 22:48 XRAY Femur LEFT In Process Unspecified. EDMS 23:11 COVID-19/FLU A+B (Document "Date of Onset" if Symptomatic) Sent. ld1 23:13 initiated a transfer with Nya Macdonald from [facility] Transfer [place]. mw2 23:28 XRAY Chest (1 view) In Process Unspecified. EDMS 23:31 connected Cal BURNS with the ortho doctor from [facility]. mw2 23:45 connected Cal BURNS with Dr. Altman the hospitalist from [facility]. 2 06/20 01:[address] [facility] to inform her of covid results. mw2 01:27 administrative approval given by Nya Macdonald/ patient has been accepted to [place] [id number] bed 1527/ Dr. Altman accepted the patient in transfer/ report to be called to [phone]. 01:45 Patient transferred, IV remains in place. vc1 Administered Medications: 06/19 22:34 Drug: morphine 4 mg Route: IVP; Site: right forearm; ld1 23:03 Follow up: Response: No adverse reaction ld1 22:35 Drug: Zofran (Ondansetron) 4 mg Route: IVP; Site: right forearm; ld1 23:03 Follow up: Response: No adverse reaction ld1 23:11 Drug: morphine 4 mg Route: IVP; Site: right forearm; ld1 23:47 Drug: NS 0.9% 1000 ml Route: IV; Rate: 75 ml/hr; Site: right forearm; ld1 06/20 01:45 Follow up: IV Status: Infusion continued upon transfer; IV Intake: 150ml vc1 02:07 Drug: morphine 4 mg Route: IVP; Site: right forearm; vc1 02:08 Follow up: Response: No adverse reaction; No adverse reaction; medication is vc1 administered at transfer 02:07 Drug: Zofran (Ondansetron) 4 mg Route: IVP; Site: right forearm; vc1 02:08 Follow up: Response: No adverse reaction; No adverse reaction; Medication administered vc1 at transfer Intake: 01:45 IV: 150ml; Total: 150ml. vc1 Outcome: 06/19 23:10 ER care complete, transfer ordered by MD. valenzuela 06/20 01:44 Transferred by ground EMS to [facility], Transfer form completed. vc1 X-rays sent w/ patient. Condition: stable Instructed on the need for transfer. 02:09 Patient left the ED. vc1 Signatures: Dispatcher [employer] EDMS Cal Phelps PA PA cp [place], MyKena mw2 Dayanara Cabral RN RN ld1 Neris Bush RN RN vc1
--- NOTE | 2021-06-19 23:11 | EDPHYS ---
Physician Documentation [facility] Name: Aviva Bonilla Age: 75 yrs Sex: Female : 1945 Arrival Date: 06/19/2021 Time: 22:21 Bed 11 Private MD: ED Physician Levi Zelaya HPI: 06/19 22:30 This 75 yrs old Female presents to ER via EMS with complaints of Left Hip Pain. cp 22:30 The patient presents with decreased range of motion, a deformity, an injury, pain, that cp is acute. The complaints affect the left hip. Context: resulted from the patient falling, the patient is not able to bear weight, the patient is not able to ambulate. Onset: The symptoms/episode began/occurred just prior to arrival. 22:30 Associated signs and symptoms: The patient has no apparent associated signs or symptoms.cp Historical: - Allergies: 22:24 No Known Allergies; ld1 - Home Meds: 22:24 Zoloft 20 mg/mL Oral conc [Active]; aspirin 81 mg Oral chew 1 tab once daily [Active]; ld1 - PMHx: 22:24 Depressive disorder; ld1 - PSHx: 22:24 Hysterectomy; ld1 - Immunization history:: Adult Immunizations up to date, Client reports receiving the 2nd dose of the Covid vaccine. - Social history:: Smoking status: Patient denies any tobacco usage or history of. Patient/guardian denies using alcohol. ROS: 22:35 Constitutional: Negative for body aches, chills, fever, poor PO intake. cp 22:35 Eyes: Negative for injury, pain, redness, and discharge. cp 22:35 Cardiovascular: Negative for chest pain, edema, palpitations. 22:35 Respiratory: Negative for cough, shortness of breath, wheezing. 22:35 Abdomen/GI: Negative for abdominal pain, nausea, vomiting, and diarrhea. 22:35 Back: Negative for pain at rest, pain with movement, radiated pain. 22:35 : Negative for urinary symptoms. 22:35 MS/extremity: Positive for decreased range of motion, deformity, pain, of the left hip, Negative for paresthesias. 22:35 Neuro: Negative for altered mental status, dizziness, syncope, weakness. 22:35 All other systems are negative. Exam: 22:35 Head/Face: Normocephalic, atraumatic. cp 22:35 Constitutional: The patient appears in no acute distress, alert, awake, non-diaphoretic, non-toxic, well developed, well nourished, in obvious pain, uncomfortable. 22:35 Eyes: Periorbital structures: appear normal, Pupils: equal, round, and reactive to light and accomodation, Extraocular movements: intact throughout, Conjunctiva: normal, no exudate, no injection, Sclera: no appreciated abnormality, Lids and lashes: appear normal, bilaterally. 22:35 ENT: External ear(s): are unremarkable, Nose: is normal, Mouth: Lips: moist, Oral mucosa: moist, Posterior pharynx: Airway: no evidence of obstruction, patent. 22:35 Neck: C-spine: vertebral tenderness, is not appreciated, crepitus, is not appreciated, ROM/movement: is normal, is supple, without pain, no range of motions limitations. 22:35 Chest/axilla: Inspection: normal, Palpation: is normal, no crepitus, no tenderness. 22:35 Cardiovascular: Rate: normal, Rhythm: regular, Pulses: Pulses are 2+ in left dorsalis pedis artery. Edema: is not appreciated, JVD: is not appreciated. 22:35 Respiratory: the patient does not display signs of respiratory distress, Respirations: normal, no use of accessory muscles, no retractions, labored breathing, is not present, Breath sounds: are clear throughout, no decreased breath sounds, no stridor, no wheezing. 22:35 Abdomen/GI: Inspection: abdomen appears normal, Bowel sounds: active, all quadrants, Palpation: abdomen is soft and non-tender, in all quadrants. 22:35 Back: pain, is absent, ROM is normal. 22:35 Musculoskeletal/extremity: Extremities: grossly normal except: noted in the left hip: decreased ROM, deformity, pain, left leg shortened, ROM: limited passive range of motion, in the left hip, limited passive range of motion due to pain, in the left hip, the left hip Severe pain noted. 22:35 Neuro: Orientation: to person, place \\T\\ time. Mentation: is normal. 23:40 ECG was reviewed by the Attending Physician. cp Vital Signs: 22:21 BP 150 / 102; Pulse 80; Resp 18; Temp 98.1(TE); Pulse Ox 98% on R/A; Weight 48.08 kg; ld1 Height 5 ft. 3 in. (160.02 cm); Pain 9/10; 23:48 BP 141 / 80; Pulse 70; Resp 17; Pulse Ox 95% on R/A; ld1 06/20 00:15 BP 131 / 63; Pulse 65; Resp 15; Pulse Ox 100% on R/A; vc1 01:00 BP 127 / 69; Pulse 62; Resp 15; Pulse Ox 99% on R/A; vc1 01:30 BP 133 / 66; Pulse 63; Resp 14; Pulse Ox 99% ; vc1 06/19 22:21 Body Mass Index 18.78 (48.08 kg, 160.02 cm) ld1 MDM: 06/19 22:26 Patient medically screened. cp 22:57 Physician consultation: Thong Woodson MD was called at 22:58, was contacted at 22:58, cp regarding consult, patient's condition, reports he is on the way out of [facility] for [facility] emergency and will be unavailable for consult. 23:10 Data reviewed: vital signs, nurses notes, radiologic studies, plain films, I have cp discussed the patient's presentation/case with the attending Emergency Department Physician;. 23:10 Differential diagnosis: dislocation, open fracture, closed fracture. Test cp interpretation: by ED physician or midlevel provider: plain radiologic studies. 23:33 Physician consultation: was contacted at 23:33, regarding regarding transfer, to [facility]. consult, spoke with DR Montelongo, orthopedist, will consult on patient and requests transfer to hospitalist services. 23:59 Physician consultation: was contacted at 23:55, regarding regarding transfer, to [facility]. patient's condition, accepting physician will be DR Altman, hospitalist. 06/20 00:00 ED course: call number in chart [phone] times 2 with no answer. 06/19 22:49 Order name: COVID-19/FLU A+B (Document "Date of Onset" if Symptomatic) mw2 06/19 22:50 Order name: Basic Metabolic Panel; Complete Time: 23:46 cp 06/19 22:50 Order name: CBC with Diff; Complete Time: 23:46 06/19 22:50 Order name: LFT's; Complete Time: 23:46 cp 06/19 22:50 Order name: Magnesium; Complete Time: 23:46 cp 06/19 22:50 Order name: NT PRO-BNP; Complete Time: 23:46 cp 06/19 22:26 Order name: XRAY Pelvis cp 06/19 22:26 Order name: XRAY Femur LEFT cp 06/19 22:50 Order name: PT-INR; Complete Time: 23:46 cp 06/19 22:50 Order name: Troponin HS; Complete Time: 23:46 cp 06/19 22:50 Order name: XRAY Chest (1 view) cp 06/19 22:26 Order name: IV; Complete Time: 22:34 cp 06/19 22:50 Order name: EKG; Complete Time: 22:51 cp 06/19 22:50 Order name: Cardiac monitoring; Complete Time: 23:48 cp 06/19 22:50 Order name: EKG - Nurse/Tech; Complete Time: 23:47 cp 06/19 22:50 Order name: Labs collected and sent; Complete Time: 23:11 cp 06/19 22:50 Order name: O2 Per Protocol; Complete Time: 23:02 cp 06/19 22:50 Order name: O2 Sat Monitoring; Complete Time: 23:02 cp 06/19 23:04 Order name: Vargas; Complete Time: 23:47 cp EC/24 23:40 Rate is 71 beats/min. Rhythm is regular. TN interval is normal. QRS interval is normal. cp QT interval is normal. T waves are Inverted in lead aVR. Interpreted by me. Reviewed by me. Administered Medications: 22:34 Drug: morphine 4 mg Route: IVP; Site: right forearm; ld1 23:03 Follow up: Response: No adverse reaction ld1 22:35 Drug: Zofran (Ondansetron) 4 mg Route: IVP; Site: right forearm; ld1 23:03 Follow up: Response: No adverse reaction ld1 23:11 Drug: morphine 4 mg Route: IVP; Site: right forearm; ld1 23:47 Drug: NS 0.9% 1000 ml Route: IV; Rate: 75 ml/hr; Site: right forearm; ld1 06/20 01:45 Follow up: IV Status: Infusion continued upon transfer; IV Intake: 150ml vc1 02:07 Drug: morphine 4 mg Route: IVP; Site: right forearm; vc1 02:08 Follow up: Response: No adverse reaction; No adverse reaction; medication is vc1 administered at transfer 02:07 Drug: Zofran (Ondansetron) 4 mg Route: IVP; Site: right forearm; vc1 02:08 Follow up: Response: No adverse reaction; No adverse reaction; Medication administered vc1 at transfer Disposition: 03:56 Co-signature as Attending Physician, Levi Zelaya MD I agree with the assessment and kdr plan of care. Disposition Summary: 06/19/21 23:10 Transfer Ordered Transfer Location: [facility] cp Reason: Higher level of care cp Condition: Stable cp Problem: new cp Symptoms: have improved cp Accepting Physician: DR Altman(06/20/21 02:09) vc1 Diagnosis - Fracture of unspecified part of neck of left femur, initial encounter for closed cp fracture - Fall on same level from slipping, tripping and stumbling without subsequent cp striking against object Forms: - Medication Reconciliation Form cp - SBAR form cp Signatures: Dispatcher [employer] EDMS Levi Zelaya MD MD kdr Cal Phelps PA PA cp Dayanara Cabral RN RN ld1 Neris Bush RN RN vc1 Corrections: (The following items were deleted from the chart) 00:01 06/19 23:10 Doctor cp cp 06/20 02:09 00:01 DR Altman cp vc1
[2021-06-19] MEDS ORDERED: NA CHLORIDE 0.9% 1,000 ML ONE (23:25)
[2021-06-19 23:27] LABS: Absolute Lymphocytes (CBC) 1.1 K/uL (0.7-4.9); Hematocrit 36.2 % (36.0-45.0); Lymphocytes % 11.3 % (15.3-44.8); RBC Red Blood Cell Count 3.95 M/uL (3.86-4.86)
[2021-06-19 23:28] LABS: Protime INR 1.06
[2021-06-19 23:40] LABS: Albumin 3.9 g/dL (3.4-5.0); Bilirubin Direct 0.2 mg/dL (0-0.2); Bilirubin Total 0.7 mg/dL (0.2-1.0); Magnesium 2.4 mg/dL (1.8-2.4); Potassium 3.6 mmol/L (3.5-5.1); Protein, Total 6.9 g/dL (6.4-8.2); Troponin High Sensitivity 8.8 pg/mL (<58.9)
[2021-06-20] LABS: SARS-COV-2 RT PCR NEGATIVE (NEGATIVE)
[2021-06-20] MEDS ORDERED: ONDANSETRON 4 MG/2 ML VIAL ONE (01:59)
[2021-06-20] MEDS ORDERED: MORPHINE 4 MG/ML SYR ONE (01:59)
[2021-06-20 02:17] VITALS: TEMP 98.1
[2021-06-20 02:21] VITALS: O2SAT 99
[2021-06-20 02:22] VITALS: BP 133/66
--- NOTE | 2021-06-20 13:52 | RAD REPORT ---
EXAM DESCRIPTION: RAD - Pelvis - 06/19/2021 10:47 pm CLINICAL HISTORY: 75 years Female, fall left hip pain TECHNIQUE: 1 view COMPARISON: None. FINDINGS: BONES/JOINT: Left femoral neck subcapital fracture with moderate displacement of the dista l fragment superolaterally. Remainder of the bony pelvis is intact. Joint spaces are unremarkable. Mo derate dextroscoliosis of visualized lumbar spine with moderate multilevel degenerative changes. SOFT TISSUES: Unremarkable. No radiopaque foreign body. IMPRESSION: 1. Left femoral neck subcapital fracture. Electronically signed by: Zelalem Marshall MD 06/19/2021 11:12 PM CDT Due to temporary technical issues with the PACS/Fluency reporting system, reports are being signed by the in house radiologists without review as a courtesy to insure prompt reporting. The interpreting radiologist is fully responsible for the content of the report
--- NOTE | 2021-06-20 13:54 | RAD REPORT ---
EXAM DESCRIPTION: RAD - Femur Left - 06/19/2021 10:47 pm CLINICAL HISTORY: Pain COMPARISON: None TECHNIQUE: AP and lateral views of the left femur. FINDINGS: There is an acute fracture of the left femoral neck at the base of the femoral head. There is varus angulation of the distal fragment. No hip dislocation. No effusion. Remaining left femur is intact. Bone mineralization is decreased. Imaged bony pelvis appears intact. Bowel gas pattern within the imaged pelvis appears normal. IMPRESSION: Acute left subcapital femoral neck fracture. Electronically signed by: Alexandra Rose DO 06/19/2021 11:14 PM CDT Due to temporary technical issues with the PACS/Fluency reporting system, reports are being signed by the in house radiologists without review as a courtesy to insure prompt reporting. The interpreting radiologist is fully responsible for the content of the report
--- NOTE | 2021-06-20 13:56 | RAD REPORT ---
EXAM DESCRIPTION: RAD - Chest Single View - 06/19/2021 11:26 pm CLINICAL HISTORY: 75 years Female, left hip fracture COMPARISON: None. FINDINGS: No consolidation. No pneumothorax. No significant pleural effusion. Heart size is normal. Aortic atherosclerosis is present. Osseous structures are unremarkable. IMPRESSION: No acute findings. Electronically signed by: Estuardo Crockett MD 06/19/2021 11:44 PM CDT Due to temporary technical issues with the PACS/Fluency reporting system, reports are being signed by the in house radiologists without review as a courtesy to insure prompt reporting. The interpreting radiologist is fully responsible for the content of the report
== END 2021-06-20 02:09 | disposition short-term general hospital (02) ==
LOC: ER 22:19
DX: S72.012A Unspecified intracapsular fracture of left femur, initial encounter for closed fracture (principal); W01.0XXA Fall on same level from slipping, tripping and stumbling without subsequent striking against object, initial encounter; Y93.9 Activity, unspecified; Y92.9 Unspecified place or not applicable; F32.A Depression, unspecified; Z20.822 Contact with and (suspected) exposure to COVID-19
CPT/HCPCS: 96361; 93005; 85025; 80048; 36415; 83735; 85610; 80076; 84484; 83880; 0240U; 71045; 72170; 73552; 96375; 96374; 99285; J7030; J2405 ×2